=== PATIENT | female | born 1960 | race African-American/Black ===

== ENCOUNTER 2016-05-31 14:04 | Emergency (ER) | payer OTHER ==
[~2016-05-31] VITALS: Ht 172.7 cm; Wt 138.3 kg
--- NOTE | ~2016-05-31 | EKG ---
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
[~2016-05-31 14:04] MED LIST: ALBUTEROL INHAL17 GM IH; AMARYL2 MG PO; ASPIRIN325 PO; AZITHROMYCIN 2250 MG PO; COZAAR 50 MG TA50 M2 PO; DIOVAN HCT 1601 EAC1 PO; GLUCOPHAGE500 MG PO; GLUMETZA500 PO; HYDROCODONE-APA1 TA1 PO; IBUPROFEN 600600 M1 PO; INVOKANA300 MG PO; LIPITOR20 MG PO; LYRICA 75 MG CA75 MG PO; LYRICA150 MG PO; MEDROL DOSPAK21 TA1 PO; NAPROSYN500 MG PO; NEURONTIN 300300 M1 PO; NEURONTIN600 MG PO; NORCO 5-325 TA1 EACH PO; NORVASC10 MG PO; PERCOCET 5-3251 EACH PO; PROTONIX40 M2 PO; SIMVASTATIN40 MG PO; TRADJENTA5 MG PO; TRAMADOL 50 MG50 MG PO; ULTRAM 50MG TAB50 MG PO; ZANTAC 150MG T150 M1 PO; ZOCOR 10 MG TAB10 MG PO
[2016-05-31 16:19] LABS: URINE BILIRUBIN NEGATIVE (Negative); URINE BLOOD NEGATIVE (Negative); URINE COLOR YELLOW; URINE GLUCOSE-RANDOM* TRACE (Negative); URINE KETONES NEGATIVE (Negative); URINE LEUKOCYTES-REFLEX NEGATIVE (Negative); URINE PROTEIN (DIPSTICK) 1+ (Negative); URINE SPECIFIC GRAVITY 1.015 (1.003-1.035); URINE UROBILINOGEN 0.2 E.U./dl (0.2-1.0)
[2016-05-31 16:23] LABS: ABSOLUTE NEUTROPHILS 3.2 thou/uL (1.4-8.2); BASOPHILS 1.2 % (0.0-2.0); HEMATOCRIT 31.2 % (37.0-47.0); HEMOGLOBIN 10.2 gm/dL (12.0-15.0); LYMPHOCYTES 45.5 % (24.0-44.0); MANUAL DIFF NO; MCH 22.3 pg (26.0-34.0); MCHC 32.7 g/dL (28.0-37.0); MCV 68.1 fL (80.0-100.0); MONOCYTES 8.8 % (1.0-8.0); PLATELET COUNT 365 thou/uL (150-400); POLYS 43.5 % (36.0-66.0); RBC 4.59 mil/uL (4.20-5.00); RDW 19.1 % (10.5-14.5); WBC 7.4 thou/uL (4.0-11.0)
[2016-05-31 16:30] LABS: CASTS None Seen /LPF (None Seen); SQUAMOUS 0-3 Few /LPF (0-3); URINE RBC None Seen /HPF (0-2)
[2016-05-31 16:31] LABS: CRYSTALS None Seen /LPF (None Seen); URINE WBC-REFLEX 0-5 Rare /HPF (0-5)
[2016-05-31 16:32] LABS: ANION GAP 10 mmol/L (7-16); BUN 5 mg/dL (7-18); CALCIUM 8.8 mg/dL (8.5-10.1); CHLORIDE 103 mmol/L (98-107); CO2 27 mmol/L (21-32); CREATININE 0.7 mg/dL (0.6-1.0); GLUCOSE 190 mg/dL (74-106); POTASSIUM 3.6 mmol/L (3.5-5.1); SODIUM 140 mmol/L (136-145)
[2016-05-31 16:39] LABS: ALBUMIN 3.2 g/dL (3.4-5.0); ALKALINE PHOSPHATASE 97 U/L (46-116); SGOT 26 U/L (15-37); SGPT 30 U/L (30-65); TOTAL BILIRUBIN 0.6 mg/dL (<0.1-1.0); TOTAL PROTEIN 7.3 g/dL (6.4-8.2); TROPONIN-I < 0.04 ng/mL (<0.04-0.07)
[2016-05-31] MEDS ORDERED: ZOFRAN ODT4 MG PO (16:49)
[2016-05-31] MEDS ORDERED: PRILOSEC 10MG C10 MG PO (16:49)
== END 2016-05-31 17:06 ==
LOC: ER 14:04
PROVIDERS: Physician Assistant
DX: R11.2 Nausea with vomiting, unspecified (principal); R42 Dizziness and giddiness; E11.9 Type 2 diabetes mellitus without complications; G56.00 Carpal tunnel syndrome, unspecified upper limb; Z90.89 Acquired absence of other organs; I10 Essential (primary) hypertension; E78.5 Hyperlipidemia, unspecified

== ENCOUNTER 2016-12-06 00:37 | Emergency (ER) | payer OTHER ==
[~2016-12-06] VITALS: Ht 172.7 cm; Wt 113.4 kg
[~2016-12-06 00:37] MED LIST changes: +PRILOSEC 10MG C10 MG PO; +ZOFRAN ODT4 MG PO
[2016-12-06] MEDS ORDERED: NEURONTIN 300300 M1 PO (00:51)
[2016-12-06 01:03] LABS: HEMATOCRIT 37.6 % (37.0-47.0); HEMOGLOBIN 12.1 gm/dL (12.0-15.0); MCH 24.4 pg (26.0-34.0); MCHC 32.2 g/dL (28.0-37.0); MCV 75.9 fL (80.0-100.0); PLATELET COUNT 322 thou/uL (150-400); RBC 4.96 mil/uL (4.20-5.00); RDW 15.8 % (10.5-14.5); WBC 8.2 thou/uL (4.0-11.0)
[2016-12-06 01:06] LABS: MANUAL DIFF YES
[2016-12-06 01:13] LABS: CALCIUM 9.3 mg/dL (8.5-10.1); CREATININE 0.9 mg/dL (0.6-1.0); POTASSIUM 4.2 mmol/L (3.5-5.1)
[2016-12-06 01:19] LABS: ALBUMIN 3.6 g/dL (3.4-5.0); TOTAL BILIRUBIN 0.5 mg/dL (<0.1-1.0); TOTAL PROTEIN 8.4 g/dL (6.4-8.2)
[2016-12-06 01:43] LABS: ABSOLUTE NEUTROPHILS 3.4 thou/uL (1.4-8.2); LARGE PLATELETS OCCASIONAL; TOTAL CELL COUNT 100; TOXIC GRANULATION SLIGHT
[2016-12-06 02:19] LABS: URINE BILIRUBIN NEGATIVE (Negative); URINE BLOOD 1+ (Negative); URINE COLOR YELLOW; URINE GLUCOSE-RANDOM* 3+ (Negative); URINE KETONES NEGATIVE (Negative); URINE LEUKOCYTES-REFLEX 1+ (Negative); URINE PROTEIN (DIPSTICK) 2+ (Negative)
[2016-12-06 02:27] LABS: CASTS None Seen /LPF (None Seen); SQUAMOUS >10 Many /LPF (0-3)
[2016-12-06 02:28] LABS: TRANSITIONAL EPITHEL CELL 4-10 Moderate /LPF (None Seen); URINE RBC 3-10 Few /HPF (0-2); YEAST-REFLEX Present (None Seen)
[2016-12-06 02:34] LABS: CRYSTALS None Seen /LPF (None Seen)
[2016-12-06] MEDS ORDERED: KEFLEX500 MG PO (02:42)
[2016-12-06] MEDS ORDERED: NORCO 5-325 TA1 EACH PO (02:42)
== END 2016-12-06 03:24 | disposition home or self-care (01) ==
LOC: ER 00:37
PROVIDERS: Emergency Medicine
DX: N12 Tubulo-interstitial nephritis, not specified as acute or chronic (principal); E11.9 Type 2 diabetes mellitus without complications; I10 Essential (primary) hypertension; Z98.890 Other specified postprocedural states; E78.5 Hyperlipidemia, unspecified

== ENCOUNTER 2017-09-09 14:20 | Emergency (ER) | payer OTHER ==
[~2017-09-09] VITALS: Ht 175.3 cm; Wt 131.5 kg
[~2017-09-09 14:20] MED LIST changes: +KEFLEX500 MG PO
[2017-09-09 15:03] LABS: URINE BILIRUBIN NEGATIVE (Negative); URINE BLOOD TRACE (Negative); URINE CLARITY CLOUDY; URINE COLOR YELLOW; URINE GLUCOSE-RANDOM* NEGATIVE (Negative); URINE KETONES NEGATIVE (Negative); URINE LEUKOCYTES 3+ (Negative); URINE NITRITE NEGATIVE (Negative); URINE PROTEIN (DIPSTICK) 1+ (Negative); URINE SPECIFIC GRAVITY 1.025 (1.005-1.035); URINE UROBILINOGEN 0.2 E.U./dl (0.2-1.0)
[2017-09-09 15:07] LABS: ABSOLUTE NEUTROPHILS 2.6 thou/uL (1.4-8.2); BASOPHILS 0.9 % (0.0-2.0); HEMATOCRIT 37.9 % (37.0-47.0); HEMOGLOBIN 12.8 gm/dL (12.0-15.0); MCH 26.6 pg (26.0-34.0); MCHC 33.7 g/dL (28.0-37.0); MONOCYTES 8.2 % (1.0-8.0); PLATELET COUNT 256 thou/uL (150-400); POLYS 42.9 % (36.0-66.0); RDW 14.4 % (10.5-14.5)
[2017-09-09 15:10] LABS: CALCIUM 9.2 mg/dL (8.5-10.1); CREATININE 0.9 mg/dL (0.6-1.0); POTASSIUM 4.1 mmol/L (3.5-5.1)
[2017-09-09 15:16] LABS: ALBUMIN 3.7 g/dL (3.4-5.0); DIRECT BILIRUBIN 0.1 mg/dL (<0.1-0.3); TOTAL BILIRUBIN 0.6 mg/dL (<0.1-1.0); TOTAL PROTEIN 8.2 g/dL (6.4-8.2)
[2017-09-09 15:17] LABS: SQUAMOUS >10 Many /LPF (0-3)
[2017-09-09 15:18] LABS: BACTERIA >30 Many /HPF (None Seen); CASTS None Seen /LPF (None Seen); CRYSTALS None Seen /LPF (None Seen); URINE RBC 0-2 Rare /HPF (0-2); URINE WBC 6-15 Few /HPF (0-5)
[2017-09-09] MEDS ORDERED: MACROBID 100 M100 M1 PO (15:22)
== END 2017-09-09 19:29 | disposition home or self-care (01) ==
LOC: ER 14:20
PROVIDERS: Emergency Medicine
DX: N39.0 Urinary tract infection, site not specified (principal); I10 Essential (primary) hypertension; E78.5 Hyperlipidemia, unspecified; E11.9 Type 2 diabetes mellitus without complications; Z90.49 Acquired absence of other specified parts of digestive tract

== ENCOUNTER 2018-03-01 14:13 | Emergency (ER) | payer OTHER ==
[~2018-03-01] VITALS: Ht 175.3 cm; Wt 140.6 kg
[~2018-03-01 14:13] MED LIST changes: +MACROBID 100 M100 M1 PO
[2018-03-01] MEDS ORDERED: MAGIC MOUTHWASH SWISH&SPIT (15:26)
[2018-03-01 15:41] VITALS: BP 142/68
== END 2018-03-01 15:42 | disposition home or self-care (01) ==
LOC: ER 14:13
DX: K12.1 Other forms of stomatitis (principal); I10 Essential (primary) hypertension; E11.9 Type 2 diabetes mellitus without complications; E78.5 Hyperlipidemia, unspecified; Z98.890 Other specified postprocedural states; Z90.49 Acquired absence of other specified parts of digestive tract

== ENCOUNTER 2018-04-12 20:56 | Emergency (ER) | payer OTHER ==
[~2018-04-12] VITALS: Ht 170.2 cm; Wt 140.6 kg
[~2018-04-12 20:56] MED LIST changes: +MAGIC MOUTHWASH SWISH&SPIT
[2018-04-12 20:57] VITALS: BP 170/80
[2018-04-12] MEDS ORDERED: ACYCLOVIR15 GM TOP (21:59)
[2018-04-12] MEDS ORDERED: PERIDEX15 ML PO (21:59)
[2018-04-12] MEDS ORDERED: ACYCLOVIR 200200 MG PO (21:59)
== END 2018-04-12 22:20 | disposition home or self-care (01) ==
LOC: ER 20:56
DX: B00.2 Herpesviral gingivostomatitis and pharyngotonsillitis (principal); E78.5 Hyperlipidemia, unspecified; I10 Essential (primary) hypertension; E11.9 Type 2 diabetes mellitus without complications; Z90.49 Acquired absence of other specified parts of digestive tract; Z98.890 Other specified postprocedural states

== ENCOUNTER 2018-06-10 13:36 | Inpatient (IN) | payer OTHER ==
[~2018-06-10] VITALS: Ht 172.7 cm; Wt 136.1 kg
[~2018-06-10 13:36] MED LIST changes: +ACYCLOVIR 200200 MG PO; +ACYCLOVIR15 GM TOP; +PERIDEX15 ML PO
[2018-06-10 13:37] VITALS: BP 181/84
[2018-06-10 14:14] LABS: BASOPHILS 1.3 % (0.0-2.0); EOSINOPHILS 1.3 % (0.0-3.0); HEMATOCRIT 37.1 % (37.0-47.0); HEMOGLOBIN 12.3 gm/dL (12.0-15.0); LYMPHOCYTES 52.9 % (24.0-44.0); MCH 26.8 pg (26.0-34.0); MCHC 33.3 g/dL (28.0-37.0); MCV 80.6 fL (80.0-100.0); MONOCYTES 8.7 % (1.0-8.0); PLATELET COUNT 235 thou/uL (150-400); POLYS 35.8 % (36.0-66.0); RDW 13.8 % (10.5-14.5); WBC 5.6 thou/uL (4.0-11.0)
[2018-06-10 14:27] LABS: CALCIUM 9.3 mg/dL (8.5-10.1); CREATININE 0.9 mg/dL (0.6-1.0); POTASSIUM 3.9 mmol/L (3.5-5.1)
[2018-06-10 14:34] LABS: ALBUMIN 3.4 g/dL (3.4-5.0); MAGNESIUM 1.3 mg/dL (1.8-2.4); TOTAL BILIRUBIN 0.4 mg/dL (<0.1-1.0); TOTAL PROTEIN 7.7 g/dL (6.4-8.2)
[2018-06-10] MEDS ORDERED: TRAMADOL 50 MG50 MG PO (16:18)
[2018-06-10 16:26] VITALS: BP 135/72
[2018-06-10 16:48] LABS: URINE BILIRUBIN NEGATIVE (Negative); URINE BLOOD NEGATIVE (Negative); URINE CLARITY CLEAR; URINE COLOR YELLOW; URINE GLUCOSE-RANDOM* NEGATIVE (Negative); URINE KETONES NEGATIVE (Negative); URINE LEUKOCYTES-REFLEX NEGATIVE (Negative); URINE NITRITE-REFLEX NEGATIVE (Negative); URINE PROTEIN (DIPSTICK) TRACE (Negative); URINE SPECIFIC GRAVITY 1.025 (1.005-1.035); URINE UROBILINOGEN 0.2 E.U./dl (0.2-1.0)
[2018-06-10 16:57] LABS: AMP/METHAMP Negative (Negative); BARBITURATES Negative (Negative); BENZODIAZEPINES Negative (Negative); COCAINE Negative (Negative); METHADONE Negative (Negative); OPIATES Negative (Negative); PCP Negative (Negative)
[2018-06-10 17:10] VITALS: BP 150/70
[2018-06-10 17:32] VITALS: BP 167/75
--- NOTE | 2018-06-10 17:32 | NUR ---
ORTHOSTATICS NOT DONE PRIOR TO PT GOING TO INPT UNIT
--- NOTE | 2018-06-10 18:11 | NUR ---
PT CARE ASSUMED APPROX 1730. PT ADMITTED FROM ED FOR CHEST PAIN. PAIN 06/07 UPPON ARRIVAL DOWN FROM 8. PT REPORTS THAT HER PAIN LEVEL IS ACCEPTABLE AND REFUSES PAIN MEDS AT THIS TIME. PT EDUCATED ON PAIN MANAGEMENT. VSS. SR ON CUFF SETTER LOCKSTITCH. IVF STOPPED. MAG REPLACEMENT COMPLETE. GAIT UNASSESSED AT THIS TIME. PT AWARE TO CALL FOR ASSISTANCE WITH MOBILIZING UNTIL GAIT CAN BE ASSESSED AND THEREAFTER IF DIRECTED BY NURSING. PT DENIES SOA. NO DISTRESS NOTED. CV CONSULT PLACED. PT DENIES QUESTIONS OR CONCERNS REGARDING POC. NO FAMILY AT BEDSIDE AT THIS TIME.
--- NOTE | 2018-06-10 19:18 | EKG ---
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1960 Requested By: Jeet Gamble Order Number: [id number] MD: Zay Chopra Measurements Intervals [place] Rate: 77 P: 28 DC: 186 QRS: -4 QRSD: 86 T: 32 QT: 513 QTc: 581 Interpretive Statements Sinus rhythm Left ventricular hypertrophy Prolonged QT interval Inferior microinfarction, Compared to ECG 05/31/2016 14:16:03 No significant change was found Electronically Signed On 06-10-2018 19:18:23 CDT by Zay Chopra [email or web address] ��������������������������������������������� <ELECTRONICALLY SIGNED> ���������������������������������������� By: Zay Chopra MD, FAC ��������������������������������������������� 06/10/18 1918 1351 1351 Zay Chopra MD, [facility] /EPI
[2018-06-10 19:30] VITALS: BP 158/76
[2018-06-11 03:45] VITALS: BP 144/73
[2018-06-11 04:28] LABS: HEMATOCRIT 33.3 % (37.0-47.0); HEMOGLOBIN 11.1 gm/dL (12.0-15.0); MCH 27.3 pg (26.0-34.0); MCHC 33.5 g/dL (28.0-37.0); MCV 81.4 fL (80.0-100.0); RBC 4.09 mil/uL (4.20-5.00); RDW 13.9 % (10.5-14.5)
[2018-06-11 04:34] LABS: ANION GAP 9 mmol/L (7-16); BUN 14 mg/dL (7-18); CALCIUM 8.8 mg/dL (8.5-10.1); CHLORIDE 104 mmol/L (98-107); CO2 26 mmol/L (21-32); CREATININE 0.8 mg/dL (0.6-1.0); GLUCOSE 151 mg/dL (74-106); POTASSIUM 4.2 mmol/L (3.5-5.1); SODIUM 139 mmol/L (136-145); TROPONIN-I <0.06 ng/mL (<0.06)
--- NOTE | 2018-06-11 05:45 | NUR ---
ASSUMED CARE FOR PT. LABS CAME BACK IN POSITIVE MANNER. CONSULT TO CARDIO WILL BE CALLED IN THIS AM. ASSISTED PT TO BATHROOM WITHOUT AN ISSUES. ASSISTED PT IN GETTING BED DIRECTOR MEETINGS. PT STATES NO N/V OR CHEST/CARDIAC PAIN. ROOMING IN. HOURLY ROUNDING.
[2018-06-11 07:29] VITALS: BP 143/73
[2018-06-11 11:42] VITALS: BP 152/70
[2018-06-11 16:10] VITALS: BP 160/66
--- NOTE | 2018-06-11 17:38 | NUR ---
PT REPORTED INTERMITTENT CHEST PAIN 06/07 @ 1200. TREATED WITH NITRO X 1 AND IT WAS THEN A 04/09 AND SHE DECLINED ANY FURTHER NITRO...
[2018-06-11 19:40] VITALS: BP 169/74
--- NOTE | 2018-06-12 03:13 | NUR ---
SLEPT MOST OF SHIFT. NO COMPLAINTS OF PAIN THIS SHIFT. UP AD RAYNE WITH STEADY GAIT. WORKING ON GOALS AND PLAN OF CARE FOR NOC. NPO PAST MIDNIGHT FOR AM STRESS TEST. PROGRESSING SLOWLY TOWARDS DISCHARGE GOALS. CONTINUE TO ASSES CLOESLY.
[2018-06-12 04:20] VITALS: BP 137/76
[2018-06-12 07:17] VITALS: BP 153/85
--- NOTE | 2018-06-12 09:59 | HC ---
[facility] [place] [address] CONSULTATION Name: ANDREW LOGAN Room #: 350-P ADM IN M.R.#: [id number] Admission: 06/10/18 ������������������ Attend Phys: Reji Menjivar MD Discharge: ������������������ Date of : 62 Report #: [id number] THIS REPORT FOR: //name// CC: Westley Menjivar DATE OF SERVICE: 06/11/2018 HISTORY OF PRESENT ILLNESS: This is a 57-year-old female patient who presented to the Emergency Room complaining of left-sided chest discomfort and nausea. Review of old records demonstrates that the patient had similar presentation several years ago, which was atypical in nature and underwent outpatient perfusion scan, which was negative for ischemia. The patient states that she has had 2 days of symptomatology, where doing vacuuming developed dizziness, then nausea. The patient then stated that she would sit and develop some retrosternal fullness sensation that would resolve. This actually lasted most of the time until she took an aspirin. The patient states that the discomfort is more of a burning sensation with an occasional stabbing, instantaneous pain. She has no associated findings, other than what has already been mentioned. The patient states she tried taking some Zantac, but it did not help at all. She does note that the discomfort increases with inspiration and expiration. She has no palpitations with this. She has not had any syncope. She did see Dr. Ross last week for similar symptomatology and he was not concerned from that symptomatology. Of interest, though, her hemoglobin A1c was 11. She has dependent edema noted. PAST MEDICAL HISTORY: Significant for: 1. Obesity. 2. Hyperlipidemia. 3. Diabetes mellitus. 4. Hypertension. PAST SURGICAL HISTORY: Significant for: 1. D and C's in 1995 and 1997. 2. Carpal tunnel surgery. 3. Status post . 4. Cholecystectomy. MEDICATIONS: At home were Magic Mouthwash, acyclovir, Peridex, Ultram, Neurontin, Amaryl, Glucophage, Norvasc, Zocor and Cozaar. ALLERGIES: No known drug allergies. SOCIAL HISTORY: The patient does not smoke, consume alcohol or follow any dietary restriction or exercise regimen. [facility] [address] [place] [address] CONSULTATION Name: ANDREW LOGAN Room #: 350-[facility] IN [facility].#: [id number] Admission: 06/10/18 ������������������ Attend Phys: Reji Menjivar MD Discharge: ������������������ Date of : 62 Report #: [id number] REVIEW OF SYSTEMS: Except for symptoms as previously mentioned and those commensurate with comorbid state, the 10-point review of system is negative. PHYSICAL EXAMINATION: GENERAL: Obese white female, resting comfortably, in no acute distress. VITAL SIGNS: Noted and reviewed in the chart. HEENT: Normocephalic, atraumatic. Pupils are equal, round, reactive to light and accommodation. Extraocular muscles are intact. Sclerae and conjunctivae are anicteric. NECK: JVD is normal. Carotid upstrokes are bilaterally symmetrical. No bruits are heard. No thyromegaly. No lymphadenopathy. LUNGS: Clear to auscultation. No wheezes, rhonchi or crackles. No CVA tenderness. CARDIAC: Demonstrates a regular rhythm. Normal first and second heart sounds. No ventricular or atrial gallops, no rubs noted. No murmurs. No lifts or heaves, PMI normal. ABDOMEN: Soft, nontender, nondistended. Normal bowel sounds. EXTREMITIES: Without cyanosis, clubbing or edema. Distal pulses are intact. DTR symmetrical. NEUROLOGIC: Cranial nerves 2-12 are grossly normal and symmetrical. PSYCHIATRIC: Alert, oriented with normal affect. SKIN: Warm and dry. IMPRESSION: 1. Atypical chest pain in an individual that has some risk factors. I think we need to proceed with obtaining objective evidence of ischemia. EKG demonstrated normal sinus rhythm without any acute changes, but there is evidence of LVH, which may be a factor in his symptomatology. Either way, obtaining objective evidence of ischemia is indicated. We will proceed with a 2-day perfusion scan. 2. Dyslipidemia. I discussed the [place] [employer] step-1 diet, the [place] diet, which is a combination of the [place] [employer], [place] Heart Association recommendations for lipids and [place] Diabetic [employer] recommendations for carbohydrates. We will need to augment therapy according to findings on the lab work that has been drawn today. 3. Hypertension. We will monitor blood pressures carefully to see how she is on the current regimen. I suspect there may be some degree of obstructive sleep apnea, which we may need to evaluate more fully. 4. Diabetes mellitus, moderate control as per last week's labs, need to augment therapy appropriately. 5. Possible obstructive sleep apnea is a factor creating some of the symptomatology and hypertension will be evaluated as an outpatient. ��������������������������������������������� <ELECTRONICALLY SIGNED> ���������������������������������������� By: Tad Mane MD ��������������������������������������������� 06/12/18 0959 [id number] Tad Mane MD /nt
[2018-06-12 11:15] VITALS: BP 153/87
--- NOTE | 2018-06-12 14:41 | NUR ---
ASSESSMENT: CM REVIEWED CHART AND MET WITH PATIENT AND HER AT THE BEDSIDE. PT IS ALERT AND ORIENTED X4. PT WAS ADMITTED FOR CHEST PAIN AND HAD STRESS TEST TODAY. PT REPORTS LIVING IN A HOUSE WITH HER . PT REPORTS HAVING 2 STEPS TO ENTER WITH NO HANDRAILS AND NO STEPS ONCE INSIDE. PT REPORTS BEING FULLY INDEPENDENT WITH ADLS AND AMBULATION. PT REPORTS SHE HAS NOT HAD HH IN THE PAST. PT IS SHOWING PATIENT PAY AND CONFIRMS SHE CURRENTLY DOES NOT HAVE INSURANCE. CM NOTIFIED PT [facility] MAY SEE HER. PT REPORTS SHE HAS A PCP DR. JEROME. PT REPORTS NO FURTHER NEEDS FROM AT THIS TIME.
[2018-06-12 16:24] VITALS: BP 144/77
--- NOTE | 2018-06-12 18:35 | NUR ---
PT HAS DENIED CHEST PAIN TODAY...SHE HAD PART ONE OF STRESS TEST AND WILL HAVE PART TWO IN MORNING...
[2018-06-12 19:20] VITALS: BP 139/79
--- NOTE | 2018-06-13 03:23 | NUR ---
ASSUMED PT CARE AROUND 1900. A&OX4. DENIES ANY CHEST PAIN OR SOA. UP AD RAYNE AROUND THE ROOM WITH STEADY GAIT. PT SLEPT MOST OF THE NIGHT. NO MAJOR COMPLAINTS THIS SHIFT. ANTICIPATING PART 2 OF STRESS TEST TODAY. PROGRESSING TOWARD POC GOALS. WILL CONTINUE TO MONITOR FURTHER.
[2018-06-13 03:45] VITALS: BP 132/73
[2018-06-13 08:05] VITALS: BP 142/87
[2018-06-13 11:51] VITALS: BP 140/80
--- NOTE | 2018-06-13 13:10 | NUR ---
ON-GOING ASSESSMENT: PATIENT HAD PART TWO OF HER TWO DAY STRESS TEST COMPLETED TODAY AND IS GOING TO DISCHARGE HOME. PT REPORTS HAVING NO NEEDS FROM CM.
[2018-06-13 14:20] VITALS: BP 140/80
[2018-06-13 14:22] VITALS: BP 140/80
--- NOTE | 2018-06-13 14:54 | NUR ---
Assumed care of patient at 0700. Vitals have been stable. Denies any pain, or any chest pain / pressure. Denies SOB. Some mild nausea this morning but relieved after eating breakfast. Displays steady gait, up ad opal in room. Completed second part of stress test this morning. Results show negative stress test. Okay to discharge per cardiology's note. Discharge orders received. Instructions and follow ups reviewed with patient at bedside, verbalizes understanding. IV and telemetry discontinued. Belongings gathered. Denies any home meds locked in pharmacy or any items with security. Transported to private vehicle via wheelchair to [place] home.
== END 2018-06-13 15:18 | disposition home or self-care (01) | DRG 313 ==
LOC: ER 13:36 → EROBS 15:35 → 3W 15:35 → ENTRNSPT 06-13 14:36 → 3W 06-13 15:18
PROVIDERS: Emergency Medicine; ADMIT Hospitalist
DX: R07.9 Chest pain, unspecified (principal); E11.9 Type 2 diabetes mellitus without complications; I10 Essential (primary) hypertension; E78.5 Hyperlipidemia, unspecified; E83.42 Hypomagnesemia; E78.00 Pure hypercholesterolemia, unspecified; E66.01 Morbid (severe) obesity due to excess calories; Z79.82 Long term (current) use of aspirin; Z79.899 Other long term (current) drug therapy; Z68.42 Body mass index [BMI] 45.0-49.9, adult; Z90.49 Acquired absence of other specified parts of digestive tract
CPT/HCPCS: 10879

== ENCOUNTER 2019-03-03 11:03 | Emergency (ER) | payer OTHER ==
[~2019-03-03] VITALS: Ht 175.3 cm; Wt 134.7 kg
[2019-03-03] MEDS ORDERED: TESSALON PERLE100 MG PO (12:40)
[2019-03-03] MEDS ORDERED: VENTOLIN HFA 1818 GM INH (12:40)
[2019-03-03 12:51] VITALS: BP 153/88
== END 2019-03-03 12:51 | disposition home or self-care (01) ==
LOC: ER 11:03
DX: J06.9 Acute upper respiratory infection, unspecified (principal); J98.01 Acute bronchospasm; I10 Essential (primary) hypertension; E11.9 Type 2 diabetes mellitus without complications; E78.5 Hyperlipidemia, unspecified; M54.9 Dorsalgia, unspecified; G89.29 Other chronic pain; Z98.890 Other specified postprocedural states

== ENCOUNTER 2019-08-17 07:30 | Inpatient (IN) | payer OTHER ==
[~2019-08-17] VITALS: Ht 180.3 cm; Wt 128.0 kg
[~2019-08-17 07:30] MED LIST changes: +TESSALON PERLE100 MG PO; +VENTOLIN HFA 1818 GM INH
[2019-08-17 07:31] VITALS: BP 199/80
[2019-08-17 07:58] LABS: ABSOLUTE NEUTROPHILS 4.6 thou/uL (1.4-8.2); BASOPHILS 0.7 % (0.0-2.0); EOSINOPHILS 0.3 % (0.0-3.0); HEMATOCRIT 39.9 % (37.0-47.0); HEMOGLOBIN 13.1 gm/dL (12.0-15.0); LYMPHOCYTES 28.8 % (24.0-44.0); MCH 26.4 pg (26.0-34.0); MCHC 32.7 g/dL (28.0-37.0); MCV 80.6 fL (80.0-100.0); MONOCYTES 8.5 % (1.0-8.0); PLATELET COUNT 276 thou/uL (150-400); POLYS 61.7 % (36.0-66.0); RBC 4.95 mil/uL (4.20-5.00); RDW 13.7 % (10.5-14.5); WBC 7.5 thou/uL (4.0-11.0)
[2019-08-17 08:02] LABS: URINE BILIRUBIN NEGATIVE (Negative); URINE BLOOD 1+ (Negative); URINE CLARITY CLEAR; URINE COLOR YELLOW; URINE GLUCOSE-RANDOM* NEGATIVE (Negative); URINE KETONES 1+ (Negative); URINE LEUKOCYTES-REFLEX NEGATIVE (Negative); URINE NITRITE-REFLEX NEGATIVE (Negative); URINE PROTEIN (DIPSTICK) 2+ (Negative); URINE SPECIFIC GRAVITY 1.025 (1.005-1.035)
[2019-08-17 08:04] LABS: ANION GAP 12 mmol/L (7-16); BUN 10 mg/dL (7-18); CALCIUM 9.2 mg/dL (8.5-10.1); CHLORIDE 102 mmol/L (98-107); CO2 25 mmol/L (21-32); CREATININE 0.9 mg/dL (0.6-1.0); GLUCOSE 144 mg/dL (74-106); POTASSIUM 3.5 mmol/L (3.5-5.1); SODIUM 139 mmol/L (136-145)
[2019-08-17 08:11] LABS: AMP/METHAMP Negative (Negative); BARBITURATES Negative (Negative); BENZODIAZEPINES Negative (Negative); COCAINE Negative (Negative); METHADONE Negative (Negative); OPIATES Negative (Negative); PCP Negative (Negative)
[2019-08-17 08:14] LABS: ALBUMIN 3.6 g/dL (3.4-5.0); MAGNESIUM 1.7 mg/dL (1.8-2.4); SGOT 24 U/L (15-37); SGPT 22 U/L (30-65); TOTAL BILIRUBIN 0.7 mg/dL (0.2-1.0); TROPONIN-I <0.06 ng/mL (<0.06)
[2019-08-17 08:19] LABS: BACTERIA-REFLEX 1-9 Few /HPF (None Seen); CASTS None Seen /LPF (None Seen); CRYSTALS None Seen /LPF (None Seen); SQUAMOUS 0-3 Few /LPF (0-3); URINE RBC 0-2 Rare /HPF (0-2); URINE WBC-REFLEX None Seen /HPF (0-5)
[2019-08-17 09:26] VITALS: BP 192/84
[2019-08-17 10:31] VITALS: BP 175/79; BP 194/84
[2019-08-17 11:06] VITALS: BP 152/62
--- NOTE | 2019-08-17 15:58 | NUR ---
PT ADMITTED THIS DAY RELATED TO AMS. CM REVIEWED CHART AND SPOKE WITH CARE TEAM. CM ATTEMPTED PC TO PT'S ROOM BUT PT WAS OFF UNIT FOR TEST. PT'S SPOUSE ANSWERED. CM ROLE INTRODUCED. HE INDICATED THAT THEY RESIDE IN A HOUSE WITH 2 STEPS TO ENTER AND NO STEPS INSIDE. 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 SPOUSE INDICATED NO DME, HH, OR OP THERAPY. HE INDICATED HE HOPED THAT PT WOULD BE ABLE TO RETURN HOME ONCE MEDICALLY STABLE. PT IS BEING WORKED UP FOR POSSIBLE STROKE. 5N FOLLOWING. CM TO FOLLOW INDICATED WITH DC PLANNING.
[2019-08-17 16:55] VITALS: BP 187/70
[2019-08-17 20:09] VITALS: BP 162/76
--- NOTE | 2019-08-17 20:22 | NUR ---
1720 PT TRANSFERRED FROM TO [facility]. PT ALERT TO SELF, DISORIENTED TO PLACE, TIME AND DATE AND SITUATION. PT SEEMES TO COMPREHEND WHAT GOING ON BUT ABLE TO EXPRESSED IT FULLY. PT ABLE TO FOLLOW OMMANDS. BP IN 180'S DR. LANE CALLED, IV LOPRESSOR GIVEN PER ORDER. PT SPOUSE VISITING, UPDATED ON PT CARE. PT DENIES ANY NEEDS, CALL LIGHT AND TABLE IN REACH. BED AT LOWEST LEVEL WITH ALARM ON
--- NOTE | 2019-08-17 20:26 | NUR ---
GOT REPORT FROM ER. SETTLED THE PATIENT WHEN SHE GOT ON THE FLOOR. PT AWAKE, BUT DISORIENTED X4. PATIENT CAN FOLLOW SOME COMMANDS LIKE SQUEEZING THE HAND, WILL LET US KNOW IS SHE NEED TO GO TO BATHROOM. NOT SURE IF CONFUSED.FULL CODE, NO KNOWN ALLERGY.IV ON LEFT HAND (20 GUAGE) AND RT AC (20 GUAGE). ON ROOM AIR. TELEMETRY MONITORED, PRINTED TELEMETRY REPORTS. DID ASSESMENTS AND EDUCATION. SPEECH THERAPY EVALUATED THE PATIENT. AT BEDSIDE. PATIENT USED THE BEDSIDE COMMODE ONCE. THERE WAS ORDER FOR NIH STROKE ASSESMENT, NOBODY IN THE UNIT TRAINED FOR THAT. PUBLIC SPEAKING PROFESSOR AND CAR ICER NOTIFIED. PUBLIC SPEAKING PROFESSOR SAID, SOMEBODY FROM THE OTHER UNIT WILL COME AND HELP US ON ASSESMENTS AND NIH ASSESMENT. ASKED TO TRANSFER THE PATIENT TO THE PT WAS NOT APPROPRIATE FOR THIS UNIT SHE NEEDS HIGHER CARE. DR. LANE NOTIFIED. RN FROM THE OTHER UNIT DID THE NIH ASSESMENT AROUND 1530. PT SCORE WAS 6, SHE DID NOT READ OR REALIZE ANY PICTURES. PATIENT TRANSFERRED TO , REPORT GIVEN TO NURSE AT .
[2019-08-18] VITALS: BP 153/76
[2019-08-18 01:07] LABS: GLYCOHEMOGLOBIN (HGB A1C) 7.5 % (4.8-5.6)
[2019-08-18 04:23] VITALS: BP 151/65
--- NOTE | 2019-08-18 04:47 | NUR ---
ASSUMED PT CARE AT 2030. PT IS SLEEPING UPON ARRIVAL TO [facility]. NO SIGN OF DISTRESS NOTED IN PT. PT IS LAYING BED RESTING COMFORTABLY. DENIES ANY PAIN. NIH STROKE SCALE COMPLETED, NO DEFICITS NOTED UPON ASSESMENT. PT IS AMBULATORY BUT FALL PRECAUTION IN PLACE. PT IS STABLE THROUGOUT THE NIGHT, CONTINUE TO MONITOR, DENIES ANY FURTHER NEEDS AT THIS TIME.
[2019-08-18 06:36] LABS: CHOLESTEROL 155 mg/dL (<200); HDL CHOLESTEROL 58 mg/dL (>40); LDL CHOLESTEROL 79 mg/dL (<100); SERUM ASSESSMENT Clear; TC:HDL 2.7 Ratio (Not establshd); TRIGLYCERIDE 92 mg/dL (<150); VLDL 18 mg/dL (<40)
[2019-08-18 07:14] VITALS: BP 158/70
[2019-08-18] MEDS ORDERED: CARVEDILOL3.125 MG PO (09:30)
--- NOTE | 2019-08-18 10:15 | NUR ---
ASSUMED CARE OF PT AT 0700, ASSESSED HER, NIH SCALE DONE, PT'S MEMORY SEEMS TO BE BACK, VSS, AM BP MEDS GIVEN, PT UP TO BATHROOM, STEADY GAIT, STANDBY ASSIST ONLY, REVIEWED POC, PT VERBALIZED UNDERSTANDING, TYLENOL GIVEN FOR HEADACHE, PT'S TO ROOM, DR GÓMEZ CAME TO SEE PT, DISCHARGE PENDING, ECHO MAY BE DONE HERE, OR IF NOT AVAILABLE, MAY BE DONE OUT PATIENT. WILL MONITOR
--- NOTE | 2019-08-18 11:48 | EKG ---
[facility] [place] [address] ELECTROCARDIOGRAM REPORT Name: ANDREW LOGAN Room #: 210-P ADM IN M.R.#: [id number] Admission: 08/17/19 Attend Phys: Robel Thomas MD Discharge: Date of : 62 Report #: [id number] THIS REPORT FOR: cc: Westley Ross James A. DO Couchonnal, Luis F. 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
[2019-08-18 12:15] VITALS: BP 185/74
--- NOTE | 2019-08-18 14:17 | NUR ---
ASSUMED CARE OF PT MID SHIFT. HIGH BP NOTED PRIOR TO ARRIVAL, RN REPORTED A VERBAL ORDER OF MAINTAINING SBP >160, EMAR SHOWS A PRN MED TO GIVE IF SBP>160. PT IS A&0X4, UP AD RAYNE STEADY, SPOUSE AT BEDSIDE, BROUGHT IN LUNCH FOR PT. WILL CONTINUE TO MONITOR. ENCOURAGED BOTH TO USE CALL LIGHT FOR ANY NEEDS
[2019-08-18 15:55] VITALS: BP 187/91
[2019-08-18] MEDS ORDERED: COREG6.25 MG PO (16:03)
[2019-08-18 17:04] VITALS: BP 187/91
--- NOTE | 2019-08-22 12:03 | EEG ---
[facility] [place] [address] ELECTROENCEPHALOGRAM Name: ANDREW LOGAN Room #: 210-P [facility] IN M.R.#: [id number] Admission: 08/17/19 Attend Phys: Robel Thomas MD Discharge: 08/18/19 Date of : 62 Report #: [id number] THIS REPORT FOR: //name// CC: Robel Ross DATE OF SERVICE: 08/17/2019 This patient is being evaluated for altered mental status. EEG was done by placing the electrode by standard 10-20 system of electrode placement. Both referential and sequential montages were used for recording. Background activity in this patient's EEG is about 8 Hz and 20 microvolt. Photic stimulation is unremarkable. The patient was drowsy throughout the record and that is associated with bilateral slowing and vertex sharp waves. Throughout the record, no active epileptiform activity was noticed. IMPRESSION: This patient's EEG is slow and poorly formed. That is a nonspecific finding, which can occur with drowsiness, effect of psychotropic medication, encephalopathy, dementia, etc. Clinical correlation is recommended. Thank you very much for this referral. <ELECTRONICALLY SIGNED> By: Marc oA Dixon MD 08/22/19 1203 [id number] Marco A Dixon MD /nt
== END 2019-08-18 18:14 | disposition home or self-care (01) | DRG 78 ==
LOC: ER 07:30 → EROBS 09:02 → 4W 10:45 → 2N 17:23
PROVIDERS: Emergency Medicine; ADMIT Hospitalist; ATTEND Hospitalist
DX: I67.4 Hypertensive encephalopathy (principal); I16.1 Hypertensive emergency; E11.9 Type 2 diabetes mellitus without complications; I10 Essential (primary) hypertension; E78.5 Hyperlipidemia, unspecified; G89.29 Other chronic pain; M54.9 Dorsalgia, unspecified; E87.6 Hypokalemia; E83.42 Hypomagnesemia; R13.0 Aphagia; E66.01 Morbid (severe) obesity due to excess calories; G56.00 Carpal tunnel syndrome, unspecified upper limb; Z79.899 Other long term (current) drug therapy; Z90.49 Acquired absence of other specified parts of digestive tract; Z79.51 Long term (current) use of inhaled steroids; Z79.84 Long term (current) use of oral hypoglycemic drugs; Z79.82 Long term (current) use of aspirin; Z82.49 Family history of ischemic heart disease and other diseases of the circulatory system; Z68.39 Body mass index [BMI] 39.0-39.9, adult
CPT/HCPCS: 10081

== ENCOUNTER 2021-02-07 10:16 | Emergency (ER) | payer OTHER ==
[~2021-02-07] VITALS: Ht 175.3 cm; Wt 133.8 kg
[~2021-02-07 10:16] MED LIST changes: +CARVEDILOL3.125 MG PO; +COREG6.25 MG PO
[2021-02-07 10:46] VITALS: BP 134/58
[2021-02-07 11:18] LABS: URINE BILIRUBIN NEGATIVE (Negative); URINE BLOOD NEGATIVE (Negative); URINE CLARITY CLEAR; URINE COLOR YELLOW; URINE GLUCOSE-RANDOM* NEGATIVE (Negative); URINE KETONES NEGATIVE (Negative); URINE NITRITE-REFLEX NEGATIVE (Negative); URINE PROTEIN (DIPSTICK) NEGATIVE (Negative); URINE UROBILINOGEN 0.2 E.U./dl (0.2-1.0)
[2021-02-07 11:20] LABS: URINE LEUKOCYTES-REFLEX 2+ (Negative)
[2021-02-07 11:34] LABS: BACTERIA-REFLEX 1-9 Few /HPF (None Seen); CASTS None Seen /LPF (None Seen); CRYSTALS None Seen /LPF (None Seen); SQUAMOUS >10 Many /LPF (0-3); URINE RBC None Seen /HPF (NONE SEEN); URINE WBC-REFLEX 6-15 Few /HPF (0-5)
[2021-02-07] MEDS ORDERED: MACROBID 100 M100 MG PO (11:37)
[2021-02-07] MEDS ORDERED: FLEXERIL PO (11:37)
[2021-02-07] MEDS ORDERED: IBUPROFEN 800800 MG PO (11:37)
== END 2021-02-07 14:52 | disposition home or self-care (01) ==
LOC: ER 10:16
PROVIDERS: Emergency Medicine
DX: N39.0 Urinary tract infection, site not specified (principal); M62.830 Muscle spasm of back; I10 Essential (primary) hypertension; E78.5 Hyperlipidemia, unspecified; E11.9 Type 2 diabetes mellitus without complications; Z98.890 Other specified postprocedural states; Z79.84 Long term (current) use of oral hypoglycemic drugs; Z79.82 Long term (current) use of aspirin; Z79.899 Other long term (current) drug therapy; Z79.891 Long term (current) use of opiate analgesic; Z79.1 Long term (current) use of non-steroidal anti-inflammatories (NSAID)

== ENCOUNTER → 2021-03-05 | Emergency (ER) | payer OTHER ==
[~2021-03-05] VITALS: Ht 180.3 cm; Wt 90.7 kg
[~2021-03-05] MED LIST changes: +FLEXERIL PO; +IBUPROFEN 800800 MG PO; +MACROBID 100 M100 MG PO; +NORCO5 PO
[2021-03-05 21:30] VITALS: BP 132/78
== END ==
LOC: ER 19:19
DX: S80.11XA Contusion of right lower leg, initial encounter (principal); E11.9 Type 2 diabetes mellitus without complications; I10 Essential (primary) hypertension; E78.5 Hyperlipidemia, unspecified; Z98.890 Other specified postprocedural states; Z90.49 Acquired absence of other specified parts of digestive tract; Z79.82 Long term (current) use of aspirin; Z79.84 Long term (current) use of oral hypoglycemic drugs; Z79.899 Other long term (current) drug therapy; W01.0XXA Fall on same level from slipping, tripping and stumbling without subsequent striking against object, initial encounter; Y93.89 Activity, other specified; Y92.89 Other specified places as the place of occurrence of the external cause; Y99.8 Other external cause status

== ENCOUNTER → 2021-03-24 | Outpatient (CLI) | payer OTHER ==
[2021-03-24 13:04] LABS: CREATININE 0.9 mg/dL (0.6-1.0)
== END ==
LOC: CAT 12:07
PROVIDERS: ATTEND Family Medicine
DX: R91.1 Solitary pulmonary nodule (principal); I31.3 Pericardial effusion (noninflammatory); M47.814 Spondylosis without myelopathy or radiculopathy, thoracic region; M85.80 Other specified disorders of bone density and structure, unspecified site